=== PATIENT | female | born 1960 | race Caucasian/White ===

== ENCOUNTER 2020-09-04 09:35 | Outpatient (REF) | payer OTHER, SELFPAY ==
[2020-09-04 10:36] LABS: COVID-19 Test Negative (Negative)
== END 2020-09-04 09:36 | disposition home or self-care (01) ==
LOC: HO.EMPCOV 09:35
PROVIDERS: PCP Pediatrics; Visit Provider Internal Medicine
DX: Z20.828 Contact with and (suspected) exposure to other viral communicable diseases (principal)
CPT/HCPCS: 87635; C9803